=== PATIENT | female | born 2000 | race Two or more races ===

== ENCOUNTER 2021-07-08 13:42 | Inpatient (IN) | payer MEDICARE, MEDICAID ==
[~2021-07-08] VITALS: Ht 167.6 cm; Wt 79.8 kg
[2021-07-08] MEDS ORDERED: ACETAMINOPHEN 325MG TABLET PO ONE (16:15)
[2021-07-08 16:55] LABS: CLARITY URINE CLEAR (CLEAR); COLOR URINE YELLOW (YELLOW); KETONES URINE NEGATIVE (NEGATIVE); LEUKOCYTE ESTERASE URINE TRACE (NEGATIVE); NITRITE URINE NEGATIVE (NEGATIVE); OCCULT BLOOD URINE 1+ (NEGATIVE); PROTEIN URINE NEGATIVE (NEGATIVE); SPECIFIC GRAVITY URINE 1.003 (1.005-1.030); UROBILINOGEN URINE 0.2 E.U./dL (0.2-1.0)
[2021-07-08 17:10] LABS: *AMPHETAMINES SCREEN URINE NEGATIVE (NEGATIVE); *BARBITURATES SCREEN URINE NEGATIVE (NEGATIVE); *COCAINE SCREEN URINE NEGATIVE (NEGATIVE); CANNABINOID URINE SCREEN NEGATIVE (NEGATIVE); PHENCYCLIDINE URINE SCREEN NEGATIVE (NEGATIVE)
[2021-07-08 17:11] LABS: *BENZODIAZEPINES SCREEN URINE NEGATIVE (NEGATIVE); METHADONE URINE SCREEN NEGATIVE (NEGATIVE); OPIATES URINE SCREEN NEGATIVE (NEGATIVE)
[2021-07-08 17:44] LABS: BASOPHILS % 0.2 % (0.0-2.0); EOSINOPHILS % 0.1 % (0.0-5.0); HEMATOCRIT. 41.5 % (36.0-48.0); HEMOGLOBIN. 14.1 g/dL (12.0-16.0); LYMPHOCYTES % 18.5 % (20.0-50.0); MEAN CORPUSCULAR HEMOGLOBIN 30.8 pg (28.0-32.0); MEAN CORPUSCULAR VOLUME 90.9 fL (81.0-99.0); MEAN PLATELET VOLUME 8.6 fl (7.4-10.4); MONOCYTES % 6.6 % (2.0-8.0); NEUTROPHILS % 74.6 % (40.0-76.0); PLATELET 303 x1000/uL (130-400); RED BLOOD CELL COUNT 4.57 mill/uL (4.2-5.4)
[2021-07-08 17:57] LABS: CHLORIDE 113 mEq/L (98-107)
[2021-07-08 18:01] LABS: ETHANOL BLOOD < 10 mg/dL
[2021-07-08] MEDS ORDERED: OLANZAPINE 5MG TABLET PO SCH (20:45)
[2021-07-08] MEDS ORDERED: LORAZEPAM 2MG/ML CPJ IM STA (20:57)
[2021-07-08] MEDS ORDERED: OLANZAPINE 5MG TABLET PO NR (21:00)
[2021-07-08] MEDS ORDERED: DIPHENHYDRAMINE 50MG/ML VIAL IM ONE (21:45)
[2021-07-08] MEDS ORDERED: HALOPERIDOL LACTATE 5MG/ML VIAL IM ONE (21:45)
[2021-07-08 21:47] LABS: HCG SCREEN NEGATIVE
[2021-07-08] MEDS ORDERED: SODIUM CHLORIDE 0.9% 1,000 ML IV ONE (23:45)
[2021-07-09 03:55] VITALS: BP 98/59
[2021-07-09] MEDS ORDERED: NALOXONE HCL 0.4 MG/ML 1ML VIAL IV PRN (04:45)
[2021-07-09] MEDS: SODIUM CHLORIDE 0.9% 1,000 ML IV SCH ×2 (05:33→18:56)
[2021-07-09 08:00] VITALS: BP 123/82
[2021-07-09 09:05] LABS: BASOPHILS % 0.3 % (0.0-2.0); EOSINOPHILS % 0.1 % (0.0-5.0); HEMATOCRIT. 37.9 % (36.0-48.0); HEMOGLOBIN. 12.4 g/dL (12.0-16.0); LYMPHOCYTES % 24.5 % (20.0-50.0); MEAN CORPUSCULAR HEMOGLOBIN 30.3 pg (28.0-32.0); MEAN CORPUSCULAR VOLUME 92.8 fL (81.0-99.0); MEAN PLATELET VOLUME 8.1 fl (7.4-10.4); MONOCYTES % 7.4 % (2.0-8.0); NEUTROPHILS % 67.7 % (40.0-76.0); PLATELET 259 x1000/uL (130-400); RED BLOOD CELL COUNT 4.09 mill/uL (4.2-5.4); RED CELL DISTRIBUTION WIDTH 13.4 % (11.6-14.6)
[2021-07-09 09:11] LABS: CHLORIDE 116 mEq/L (98-107)
[2021-07-09] MEDS ORDERED: PNEUMOCOCCAL 23-VAL P-SAC VAC 0.5 ML IM ONE (10:00)
[2021-07-09 12:00] VITALS: BP 117/63
[2021-07-09 15:49] LABS: UCG SCREEN NEGATIVE
[2021-07-09 16:00] VITALS: BP 118/80
[2021-07-09] MEDS ORDERED: LEVETIRACETAM 1000MG PREMIX 100 ML IV SCH (17:00)
[2021-07-09] MEDS: HALOPERIDOL LACTATE 5MG/ML VIAL IM PRN (17:40)
[2021-07-09 20:00] VITALS: BP 127/66
[2021-07-10] VITALS: BP 117/64
[2021-07-10 04:00] VITALS: BP 110/61
[2021-07-10 08:11] VITALS: BP 109/56
[2021-07-10] MEDS: SODIUM CHLORIDE 0.9% 1,000 ML IV SCH ×2 (08:25→21:01)
[2021-07-10] MEDS ORDERED: LEVETIRACETAM 1,000 MG in SODIUM CHLORIDE 0.9% 100 ML IV SCH (09:00)
[2021-07-10 11:05] VITALS: BP 145/67
[2021-07-10] MEDS: HYDROCODONE/ACETAMINOPHEN 5/325MG TABLET PO PRN (11:21)
[2021-07-10 16:43] VITALS: BP 137/80
[2021-07-10 20:00] VITALS: BP 121/73
[2021-07-10] MEDS: LEVETIRACETAM 1000MG PREMIX 100 ML IV SCH (21:01)
[2021-07-10] MEDS: HALOPERIDOL LACTATE 5MG/ML VIAL IM PRN (21:02)
[2021-07-11] VITALS: BP 133/73
[2021-07-11 04:00] VITALS: BP 115/61
[2021-07-11 08:13] VITALS: BP 107/80
[2021-07-11] MEDS: LEVETIRACETAM 1000MG PREMIX 100 ML IV SCH ×2 (09:27→21:58)
[2021-07-11] MEDS: SODIUM CHLORIDE 0.9% 1,000 ML IV SCH ×2 (09:28→23:33)
[2021-07-11 12:00] VITALS: BP 126/74
[2021-07-11 16:17] VITALS: BP 140/76
[2021-07-11] MEDS: HYDROCODONE/ACETAMINOPHEN 5/325MG TABLET PO PRN ×2 (17:55→22:07)
[2021-07-11 20:00] VITALS: BP 126/70
[2021-07-12] VITALS: BP 122/68
[2021-07-12 04:00] VITALS: BP 111/69
[2021-07-12 08:00] VITALS: BP 108/65
[2021-07-12] MEDS: LEVETIRACETAM 1000MG PREMIX 100 ML IV SCH (08:45)
[2021-07-12] MEDS: HYDROCODONE/ACETAMINOPHEN 5/325MG TABLET PO PRN (10:06)
[2021-07-12 12:00] VITALS: BP 117/62
[2021-07-12 16:00] VITALS: BP 112/63
[2021-07-12 20:00] VITALS: BP 112/64
[2021-07-12] MEDS: LEVETIRACETAM 500MG/5ML CUP PO SCH (20:23)
[2021-07-13] VITALS: BP 93/64
[2021-07-13 04:00] VITALS: BP 112/53
[2021-07-13 08:00] VITALS: BP 103/59
[2021-07-13] MEDS: LEVETIRACETAM 500MG/5ML CUP PO SCH (09:53)
[2021-07-13] MEDS: HYDROCODONE/ACETAMINOPHEN 5/325MG TABLET PO PRN (09:59)
[2021-07-13 12:00] VITALS: BP 101/56
[2021-07-13 13:57] VITALS: BP 101/86
== END 2021-07-13 15:35 | disposition home or self-care (01) | DRG 72 ==
LOC: ER 13:42 → 6WST 22:28 → EDBEDREQ 22:54 → ENRESERV 07-09 03:18
PROVIDERS: ADMIT Hospitalist; ATTEND Hospitalist
PROC: 4A10X4Z Monitoring of Central Nervous Electrical Activity, External Approach (ICD-10-PCS; principal; 2021-07-12)
DX: G93.40 Encephalopathy, unspecified (principal); M54.5 Low back pain; M41.9 Scoliosis, unspecified; G80.9 Cerebral palsy, unspecified; F43.20 Adjustment disorder, unspecified; F44.9 Dissociative and conversion disorder, unspecified; G89.29 Other chronic pain; Z98.1 Arthrodesis status; Z82.3 Family history of stroke; Z99.3 Dependence on wheelchair; Z78.1 Physical restraint status
CPT/HCPCS: 36415; 70551; 71045; 72070; 80048; 80053; 80305; 80307; 80320; 80329; 81003; 81025; 82140; 82962; 84443; 84703; 85025; 95816; 97163; 99285; C1893; J1200; J1630; J1953; J2060; J7030; J7050; G0480